=== PATIENT | female | born 1965 | race Asian ===

== ENCOUNTER → 2017-04-02 | Outpatient (CLI) | payer OTHER | END | disposition home or self-care (01) | LOC: CFH 15:49 | PROVIDERS: ATTEND Family Medicine | DX: Z12.31 Encounter for screening mammogram for malignant neoplasm of breast (principal) | CPT/HCPCS: G0202 ==

== ENCOUNTER 2018-05-30 05:13 | Emergency (ER) | payer OTHER ==
--- NOTE | 2018-05-30 05:28 | NUR ---
assessment made. Chart up for MD to see.
--- NOTE | 2018-05-30 05:35 | NUR ---
patient c/o dizziness described as spinning. + headache.
[2018-05-30 06:15] LABS: BASOPHILS # (AUTO) 0.07 x10^3/uL (0-0.1); BASOPHILS % (AUTO) 1 % (0-1); EOSINOPHILS # (AUTO) 0.05 x10^3/uL (0-0.4); EOSINOPHILS % (AUTO) 1 % (1-7); LYMPHOCYTES # (AUTO) 1.67 x10^3/uL (1-3.4); LYMPHOCYTES % (AUTO) 18 % (22-44); MD NO; MEAN CORPUSCULAR HEMOGLOBIN 29.6 pg (27.0-34.8); MEAN CORPUSCULAR HGB CONC 33.6 g/dL (32.4-35.8); MEAN CORPUSCULAR VOLUME 88.1 fL (80-100); MEAN PLATELET VOLUME 7.5 fL (7.4-10.4); MONOCYTES # (AUTO) 0.41 x10^3/uL (0.2-0.8); MONOCYTES % (AUTO) 5 % (2-9); NEUTROPHILS # (AUTO) 6.94 x10^3/uL (1.8-6.8); NEUTROPHILS % (AUTO) 76 % (42-75); PLATELET COUNT 257 x10^3/uL (130-400); RED BLOOD COUNT 4.87 x10^6/uL (3.82-5.3); RED CELL DISTRIBUTION WIDTH 14.1 % (9.6-15.2)
--- NOTE | 2018-05-30 06:25 | NUR ---
blood drawn, urine sample obtained and sent to lab. patient to CT scan.
[2018-05-30 06:28] LABS: ALBUMIN 3.3 g/dL (3.4-5.0); ANION GAP 5 mmol/L (5-15); CALCIUM 8.4 mg/dL (8.5-10.1); CHLORIDE 110 mmol/L (98-107)
[2018-05-30 06:29] LABS: CREATININE 0.93 mg/dL (0.55-1.02)
[2018-05-30 06:35] LABS: MICROSCOPIC NOT IND
[2018-05-30 06:45] LABS: CULTURE INDICATED? NO
--- NOTE | 2018-05-30 06:54 | NUR ---
report to NASIR Messina
[2018-05-30 07:04] VITALS: BP 162/82
== END 2018-05-30 07:26 | disposition home or self-care (01) ==
LOC: ED 05:45
DX: I10 Essential (primary) hypertension (principal)
CPT/HCPCS: 36415; 70450; 71046; 80048; 81003; 82040; 85025; 93005; 99284

== ENCOUNTER 2018-08-04 09:37 | Emergency (ER) | payer OTHER ==
[~2018-08-04] VITALS: Ht 162.6 cm; Wt 77.0 kg
[2018-08-04 09:41] VITALS: BP 188/105
[2018-08-04] MEDS ORDERED: IBUPROFEN 200 MG TABLET PO ONE (10:30)
[2018-08-04] MEDS ORDERED: IBUPROFEN 200 MG TABLET ONE (10:50)
== END 2018-08-04 11:07 ==
LOC: ED 11:01
DX: S16.1XXA Strain of muscle, fascia and tendon at neck level, initial encounter (principal); V49.49XA Driver injured in collision with other motor vehicles in traffic accident, initial encounter; Y93.89 Activity, other specified; Y92.89 Other specified places as the place of occurrence of the external cause; Y99.8 Other external cause status
CPT/HCPCS: 72050; 99283

== ENCOUNTER 2018-12-09 10:08 | Outpatient (CLI) | payer OTHER | END 2018-12-09 23:59 | disposition home or self-care (01) | LOC: CFH 10:08 | PROVIDERS: ATTEND Obstetrics & Gynecology | DX: N64.1 Fat necrosis of breast (principal) | CPT/HCPCS: 77066; G0279 ==

== ENCOUNTER 2019-12-12 07:43 | Outpatient (CLI) | payer OTHER | END 2019-12-12 23:59 | disposition home or self-care (01) | LOC: CFH 07:43 | PROVIDERS: ATTEND Family Medicine | DX: Z12.31 Encounter for screening mammogram for malignant neoplasm of breast (principal); N60.19 Diffuse cystic mastopathy of unspecified breast | CPT/HCPCS: 77063; 77067 ==

== ENCOUNTER → 2020-12-17 | Outpatient (CLI) | payer OTHER | END | disposition home or self-care (01) | LOC: CFH 07:22 | PROVIDERS: ATTEND Family Medicine | DX: Z12.31 Encounter for screening mammogram for malignant neoplasm of breast (principal) | CPT/HCPCS: 77063; 77067 ==